=== PATIENT | male | born 1930 | race American Indian/Alaskan Native ===

== ENCOUNTER 2017-12-15 00:14 | Inpatient (IN) | payer MEDICARE ==
[2017-12-15 02:43] LABS: Basophils % (Auto) 0.2 % (0.0-1.8); Eosinophils % (Auto) 0.5 % (0.0-4.3); Hematocrit 22.3 % (35.5-45.6); Lymphocytes # (Auto) 0.5 K/mm3 (1.2-5.4); Lymphocytes % (Auto) 8.6 % (13.4-35.0); Mean Corpuscular HGB Conc 32 % (32-34); Mean Corpuscular Hemoglobin 31 pg (28-32); Mean Corpuscular Volume 100 fl (84-94); Monocytes # (Auto) 0.2 K/mm3 (0.0-0.8); Platelet Count 274 K/mm3 (140-440); Red Blood Count 2.24 M/mm3 (3.65-5.03); Red Cell Distribution Width 17.5 % (13.2-15.2)
[2017-12-15 02:56] LABS: BUN/Creatinine Ratio 27; Blood Urea Nitrogen 30 mg/dL (9-20); Hemolysis Index 6
[2017-12-15] MEDS ORDERED: NACL 0.9% 500 ML 500 ML IV ONE (03:48)
--- NOTE | 2017-12-15 04:08 | Emergency Department Report ---
HPI - General Chief Complaint: Recheck/Abnormal Lab/Rx Time Seen by Provider: 12/15/17 03:34 - HPI HPI: Room 19 The patient is an 87-year-old male presenting with the chief complaint of anemia. The patient is unable to provide history but was sent from [facility] secondary to having a hemoglobin of 6.3 hematocrit of 18.6 on blood drawn 12/14/2017. Patient denies pain. Paperwork that accompanies patient states "sent to ER for evaluation and treatment." Location: [See above] Duration: [See above] Quality: Anemia Severity: 6.3/18.6 Modifying factors: [see above] Context: [see above] Mode of transportation: [not driving] ED Past Medical Hx - Past Medical History Previous Medical History?: Yes Hx Hypertension: Yes (CHF) Hx Congestive Heart Failure: Yes Additional medical history: tremor - Surgical History Additional Surgical History: Hip repair - Family History Family history: no significant - Social History Smoking Status: Never Smoker Substance Use Type: Prescribed - Medications Home Medications: Home Medications Medication Instructions Recorded Confirmed Last Taken Type Apixaban [Eliquis] 2.5 mg PO BID 21 Days tablet 12/09/17 Unknown Rx Ciprofloxacin HCl [Cipro] 500 mg PO BID #10 tablet 12/09/17 Unknown Rx oxyCODONE /ACETAMINOPHEN [Percocet 1 tab PO Q6H PRN #14 tablet 12/09/17 Unknown Rx 5/325 mg] ED Review of Systems ROS: Stated complaint: LOW HEMOGLOBIN Other details as noted in HPI Comment: Unobtainable due to pts medical conditions Physical Exam - Physical Exam Vital Signs: Vital Signs 12/15/17 12/15/17 12/15/17 01:52 02:00 02:03 Temperature 98.2 F Pulse Rate 79 86 Respiratory 15 22 Rate Blood Pressure 107/52 106/57 107/52 O2 Sat by Pulse 95 95 Oximetry 12/15/17 12/15/17 12/15/17 02:10 02:16 02:30 Temperature 98.2 F Pulse Rate 78 79 Respiratory 16 17 Rate Blood Pressure 107/52 100/44 O2 Sat by Pulse 96 97 Oximetry 12/15/17 02:46 Temperature Pulse Rate 76 Respiratory 15 Rate Blood Pressure 100/44 O2 Sat by Pulse 98 Oximetry Physical Exam: GENERAL: The patient is well-developed well-nourished male lying on stretcher not appear to be in acute distress. [] HEENT: Normocephalic. Atraumatic. Extraocular motions are intact. Patient has moist mucous membranes. NECK: Supple. Trachea midline CHEST/LUNGS: Clear to auscultation. There is no respiratory distress noted. HEART/CARDIOVASCULAR: Regular. There is no tachycardia. There is no gallop rub or murmur. ABDOMEN: There is no abdominal distention. SKIN: Stage II sacral decubitus ulcer. There is no diaphoresis. NEURO: The patient is awake. The patient is cooperative. MUSCULOSKELETAL:There is no evidence of acute injury. RECTAL: Guaiac-negative brown stool ED Course Vital Signs 12/15/17 12/15/17 12/15/17 01:52 02:00 02:03 Temperature 98.2 F Pulse Rate 79 86 Respiratory 15 22 Rate Blood Pressure 107/52 106/57 107/52 O2 Sat by Pulse 95 95 Oximetry 12/15/17 12/15/17 12/15/17 02:10 02:16 02:30 Temperature 98.2 F Pulse Rate 78 79 Respiratory 16 17 Rate Blood Pressure 107/52 100/44 O2 Sat by Pulse 96 97 Oximetry 12/15/17 02:46 Temperature Pulse Rate 76 Respiratory 15 Rate Blood Pressure 100/44 O2 Sat by Pulse 98 Oximetry ED Medical Decision Making - Lab Data Result diagrams: 12/15/17 02:32 12/15/17 02:32 Laboratory Tests 12/15/17 12/15/17 12/15/17 02:32 02:32 03:03 WBC 5.8 RBC 2.24 L Hgb 7.0 L Hct 22.3 L MCV 100 H MCH 31 MCHC 32 RDW 17.5 H Plt Count 274 Lymph % (Auto) 8.6 L [place] % (Auto) 4.0 Eos % (Auto) 0.5 Baso % (Auto) 0.2 Lymph # 0.5 L [place] # 0.2 Eos # 0.0 Baso # 0.0 Seg Neutrophils % 86.7 H Seg Neutrophils # 5.1 Sodium 138 Potassium 4.1 Chloride 104.8 Carbon Dioxide 18 L Anion Gap 19 BUN 30 H Creatinine 1.1 Estimated GFR > 60 BUN/Creatinine Ratio 27 Glucose 113 H Calcium 8.0 L Blood Type O POSITIVE Antibody Screen Negative Crossmatch See Detail - Differential Diagnosis GI bleed, iron deficiency anemia, Critical care attestation.: If time is entered above; I have spent that time in minutes in the direct care of this critically ill patient, excluding procedure time. ED Disposition Clinical Impression: Anemia Disposition: DC-09 OP ADMIT IP TO THIS HOSP Is pt being admited?: Yes Does the pt Need Aspirin: No Condition: Fair Referrals: KATHY EDWARDS MD [Primary Care Provider] - 3-5 Days Time of Disposition: 04:12 (hospitalist paged (Dr. Jocelyn Miller))
--- NOTE | 2017-12-15 09:41 | History and Physical Report ---
History of Present Illness Date of admission: 12/15/17 04:23 Chief complaint: [facility] for low blood counts History of present illness: 87-year-old man who recently had a hip fracture status post fall Was put on eliquis for the venous thromboembolism prophylaxis. Patient never had postoperative labs. Sensory insufficiency retirement for hemoglobin of 6.3. Upon arrival the hospitalization was actually 7. Patient complains of some fatigue but has no other complaints. Past History Past Medical History: heart failure, hypertension, other (tremor and inability) Past Surgical History: Other (hip surgery) Social history: no significant social history, other (retirement resident at [facility]) Family history: hypertension Medications and Allergies Allergies Allergy/AdvReac Type Severity Reaction Status Date / Time No Known Allergies Allergy Unverified 12/06/17 16:08 Home Medications Medication Instructions Recorded Confirmed Last Taken Type Apixaban [Eliquis] 2.5 mg PO BID 21 Days tablet 12/09/17 12/15/17 12/14/17 Rx Ciprofloxacin HCl [Cipro] 500 mg PO BID #10 tablet 12/09/17 12/15/17 12/14/17 Rx oxyCODONE /ACETAMINOPHEN [Percocet 1 tab PO Q6H PRN #14 tablet 12/09/1712/14/17 Rx 5/325 mg] Active Meds: Active Medications Influenza Virus Vaccine Quadrival (Fluarix Quad 9591-3000(36 Mos+) 0.5 ml IM .ONCE ONE Stop: 12/15/17 12:01 Pneumococcal Polyvalent Vaccine (Pneumovax 23) 0.5 ml IM .ONCE ONE Stop: 12/15/17 12:01 Review of Systems All systems: negative (14 point review of systems otherwise negative except that stated in HPI) Exam - Constitutional Vitals: Temp Pulse Resp BP Pulse Ox 98.3 F 83 18 119/47 91 12/15/17 09:07 12/15/17 09:07 12/15/17 09:07 12/15/17 09:07 12/15/17 09:07 General appearance: Present: no acute distress, well-nourished - EENT Eyes: Present: PERRL ENT: hearing intact, clear oral mucosa - Neck Neck: Present: supple, normal ROM - Respiratory Respiratory effort: normal Respiratory: bilateral: CTA - Cardiovascular Heart Sounds: Present: S1 & S2. Absent: rub, click - Extremities Extremities: pulses symmetrical, No edema Peripheral Pulses: within normal limits - Abdominal General gastrointestinal: Present: soft, non-tender, non-distended, normal bowel sounds Male genitourinary: Present: normal - Integumentary Integumentary: Present: clear, warm, dry - Musculoskeletal Musculoskeletal: gait normal, strength equal bilaterally - Psychiatric Psychiatric: appropriate mood/affect, intact judgment & insight - Neurologic Neurologic: CNII-XII intact, moves all extremities Results - Labs CBC & Chem 7: 12/15/17 02:32 12/15/17 02:32 Labs: Laboratory Last Values WBC 5.8 K/mm3 (4.5-11.0) 12/15/17 02:32 RBC 2.24 M/mm3 (3.65-5.03) L 12/15/17 02:32 Hgb 7.0 gm/dl (11.8-15.2) L 12/15/17 02:32 Hct 22.3 % (35.5-45.6) L 12/15/17 02:32 MCV 100 fl (84-94) H 12/15/17 02:32 MCH 31 pg (28-32) 12/15/17 02:32 MCHC 32 % (32-34) 12/15/17 02:32 RDW 17.5 % (13.2-15.2) H 12/15/17 02:32 Plt Count 274 K/mm3 (140-440) 12/15/17 02:32 Lymph % (Auto) 8.6 % (13.4-35.0) L 12/15/17 02:32 [place] % (Auto) 4.0 % (0.0-7.3) 12/15/17 02:32 Eos % (Auto) 0.5 % (0.0-4.3) 12/15/17 02:32 Baso % (Auto) 0.2 % (0.0-1.8) 12/15/17 02:32 Lymph # 0.5 K/mm3 (1.2-5.4) L 12/15/17 02:32 [place] # 0.2 K/mm3 (0.0-0.8) 12/15/17 02:32 Eos # 0.0 K/mm3 (0.0-0.4) 12/15/17 02:32 Baso # 0.0 K/mm3 (0.0-0.1) 12/15/17 02:32 Seg Neutrophils % 86.7 % (40.0-70.0) H 12/15/17 02:32 Seg Neutrophils # 5.1 K/mm3 (1.8-7.7) 12/15/17 02:32 Sodium 138 mmol/L (137-145) 12/15/17 02:32 Potassium 4.1 mmol/L (3.6-5.0) 12/15/17 02:32 Chloride 104.8 mmol/L (98-107) 12/15/17 02:32 Carbon Dioxide 18 mmol/L (22-30) L 12/15/17 02:32 Anion Gap 19 mmol/L 12/15/17 02:32 BUN 30 mg/dL (9-20) H 12/15/17 02:32 Creatinine 1.1 mg/dL (0.8-1.5) 12/15/17 02:32 Estimated GFR > 60 ml/min 12/15/17 02:32 BUN/Creatinine Ratio 27 % 12/15/17 02:32 Glucose 113 mg/dL (75-100) H 12/15/17 02:32 Calcium 8.0 mg/dL (8.4-10.2) L 12/15/17 02:32 Blood Type O POSITIVE 12/15/17 03:03 Antibody Screen Negative 12/15/17 03:03 Crossmatch See Detail 12/15/17 03:03 Assessment and Plan Assessment and plan: 87-year-old man admitted to the hospital for anemia Anemia CHF Hypertension Debility DVT prophylaxis on eliquis
[2017-12-15] MEDS ORDERED: PNEUMOVAX 23 IM ONE (12:00)
[2017-12-15] MEDS ORDERED: Fluarix Quad 2017-2018(36 MOS+ IM ONE (12:00)
--- NOTE | 2017-12-15 13:31 | Discharge Summary ---
Providers - Providers Date of Admission: 12/15/17 04:23 Attending physician: LUCRECIA BOSCH MD 12/15/17 07:05 Consult to Case Management [CONS] Routine Services Needed at Discharge: Other Notified:: n Additional Physician Instructions: patient from [facility] Consult to Wound/ET Nurse [CONS] Routine Reason For Exam: wound eval Primary care physician: KATHY EDWARDS Hospitalization Condition: Fair Hospital course: 79-year-old male with a past medical history of hypertension dementia and CHF, recently admitted to the hospital for hip fracture. The patient was sent to the hospital for low blood count. He was unable to articulate any symptoms himself due to dementia. He received 2 units of blood after which he was improved and subsequent discharge. Discharge diagnoses Anemia, iron deficiency Hypertension CHF Dementia Disposition: DC/[place]-03 SNF [facility] Time spent for discharge: 35 minutes Core Measure Documentation - Palliative Care Palliative Care/ Comfort Measures: Not Applicable - Core Measures Any of the following diagnoses?: none Exam - Constitutional Vitals: Temp Pulse Resp BP Pulse Ox 98.3 F 83 18 119/47 97 12/15/17 09:07 12/15/17 10:00 12/15/17 09:07 12/15/17 09:07 12/15/17 10:00 General appearance: Present: no acute distress, well-nourished - EENT Eyes: Present: PERRL ENT: hearing intact, clear oral mucosa - Neck Neck: Present: supple, normal ROM - Respiratory Respiratory effort: normal Respiratory: bilateral: CTA - Cardiovascular Heart Sounds: Present: S1 & S2. Absent: rub, click - Extremities Extremities: pulses symmetrical, No edema Peripheral Pulses: within normal limits - Abdominal General gastrointestinal: Present: soft, non-tender, non-distended, normal bowel sounds Male genitourinary: Present: normal - Integumentary Integumentary: Present: clear, warm, dry - Musculoskeletal Musculoskeletal: gait normal, strength equal bilaterally - Psychiatric Psychiatric: appropriate mood/affect, no intact judgment & insight (demented) - Neurologic Neurologic: CNII-XII intact, moves all extremities Plan Follow up with: KATHY EDWARDS MD [Primary Care Provider] - 3-5 Days Prescriptions: oxyCODONE /ACETAMINOPHEN [Percocet 5/325 mg] 1 tab PO Q6H PRN #14 tablet PRN Reason: Pain, Moderate (4-6)
[2017-12-15 13:46] VITALS: BP 119/38
[2017-12-15 14:23] LABS: Hematocrit 30.4 % (35.5-45.6); Hemoglobin 9.4 gm/dl (11.8-15.2); Mean Corpuscular HGB Conc 31 % (32-34); Mean Corpuscular Hemoglobin 31 pg (28-32); Mean Corpuscular Volume 101 fl (84-94); Platelet Count 318 K/mm3 (140-440); Red Cell Distribution Width 17.6 % (13.2-15.2)
== END 2017-12-15 14:45 | DRG 811 ==
LOC: ED 00:14 → 4A 04:23
PROVIDERS: ADMIT Internal Medicine; ATTEND Internal Medicine
PROC: 30233N1 Transfusion of Nonautologous Red Blood Cells into Peripheral Vein, Percutaneous Approach (ICD-10-PCS; principal; 2017-12-15)
DX: D50.9 Iron deficiency anemia, unspecified (principal); L89.153 Pressure ulcer of sacral region, stage 3; I50.9 Heart failure, unspecified; R53.81 Other malaise; I11.0 Hypertensive heart disease with heart failure; F03.90 Unspecified dementia, unspecified severity, without behavioral disturbance, psychotic disturbance, mood disturbance, and anxiety; Z82.49 Family history of ischemic heart disease and other diseases of the circulatory system
CPT/HCPCS: 36415; 80048; 82271; 85025; 85027; 86850; 86900; 86901; 86920; 90686; 90732; 93005; 93010; J7040; P9016